=== PATIENT | male | born 1965 | race Caucasian/White ===

== ENCOUNTER 2017-03-25 14:58 | Emergency (ER) | payer MEDICAID, OTHER ==
[~2017-03-25] VITALS: Ht 182.9 cm; Wt 74.8 kg
[~2017-03-25 14:58] MED LIST: COLACE250 MG ORAL; GABAPENTIN300 MG ORAL; NORCO 10/3251 EA ORAL; PERCOCET 10-321 EAC1 PO; VALIUM10 MG ORAL
[2017-03-25 15:09] VITALS: BP 100/64
--- NOTE | 2017-03-25 15:44 | Diagnostic Imaging Report ---
Indication: Fall Technique: Continuous helical CT scanning of the head was performed utilizing automated exposure control without intravenous contrast material. Axial and coronal reconstructions were obtained. Comparison: None CT dose: Total DLP 1376 mGycm; CTDI vol 0.2, 70.4 mGy Findings: The ventricular system is normal in size and configuration. There is no shift of midline structures. No abnormal extra-axial fluid collections are noted. There is no evidence of intracerebral bleeding. No other abnormal high or low density areas are noted within the brain. Visualized mastoid air cells and paranasal sinuses are unremarkable. No focal lesions of the bony calvarium or soft tissues of the scalp are seen. Impression: No evidence of acute intracranial hemorrhage, mass effect or cortical edema. MRI may be obtained for more sensitive evaluation as clinically indicated. The CT scanner at [facility] is accredited by the [employer] and the scans are performed using protocols designed to limit radiation exposure to as low as reasonably achievable to attain images of sufficient resolution adequate for diagnostic evaluation.
[2017-03-25 19:16] VITALS: BP 105/63
[2017-03-25 19:48] VITALS: BP 105/63
[2017-03-25] MEDS ORDERED: Bacitracin Oint UD TOPIC ONE (20:30)
--- NOTE | 2017-03-26 21:29 | Emergency Room Report ---
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 Melton is my supervising physician. Patient management was discussed with my supervising physician Diagnostic Impression: Primary Impression: Acute alcoholic intoxication ER Course DDx considered but not limited to: acute alcohol intoxication, hepatic encephalopathy, drug overdose, hypoglycemia, psychosis Physical exam: Vitals are within normal limits. No apparent distress. Patient is lethargic. Head is normocephalic atraumatic. Pupils are equally round and reactive to light The patient is arousable by touch or name. Lungs are clear to auscultation bilaterally. No abnormal tenderness. Abdomen is soft. Otherwise exam is unremarkable The patient is given time to rest in the emergency department. Upon reevaluation, patient is to drinking beers. Patient is unable to say how many. The patient is able to ambulate well and is asking to leave at this time. The patient is alert and oriented. The patient be discharged home and given ER precautions. Patient was given advice on alcohol addiction Last Vital Signs Date Time Temp Pulse Resp B/P (MAP) Pulse Ox O2 Delivery O2 Flow Rate FiO2 03/25/17 19:48 97.7 67 17 105/63 99 Room Air Disposition: HOME, SELF-CARE Condition: Improved Referrals: [facility],REFERRING (PCP) Patient Instructions: Alcohol Intoxication Additional Instructions: My findings were discussed with the patient. Patient was counseled to seek help for alcohol abuse. Patient is stable for discharge, is alert and oriented, and can ambulate without difficulty. Patient is asked to return to ED if you experiences chest pain, abdominal pain, dizziness, falls down, or for any reason. SUE MARSHALL Mar 26, 2017 21:29
== END 2017-03-25 20:00 | disposition home or self-care (01) ==
LOC: EDBD 14:58 → EMR 15:25
DX: F10.129 Alcohol abuse with intoxication, unspecified (principal); Z88.6 Allergy status to analgesic agent; G82.20 Paraplegia, unspecified; Z93.3 Colostomy status
CPT/HCPCS: 70450; 99284